=== PATIENT | female | born 1940 | race African-American/Black ===

== ENCOUNTER 2016-10-13 11:46 | Inpatient (IN) | payer MEDICARE, OTHER ==
[~2016-10-13] VITALS: Ht 165.1 cm; Wt 98.9 kg
[2016-10-13 15:18] VITALS: BP 118/69
--- NOTE | 2016-10-13 15:51 | Diagnostic Imaging Report ---
Indication: Cough Technique: One view of the chest Comparison: 05/11/2010 Findings: Patient is slightly rotated to the right. The lungs and pleural spaces are clear. Is a right chest pacemaker, new since prior study. Aorta is tortuous. There is no other significant interim change. Left axillary surgical clips are again demonstrated Impression: No acute process. Findings as noted
[2016-10-13 16:04] VITALS: BP 118/69
[2016-10-13] MEDS: Benztropine 1mg tab ORAL SCH (18:05)
[2016-10-13 20:00] VITALS: BP 148/89
[2016-10-13 20:20] LABS: TROPONIN I < 0.30 ng/mL (<=0.30)
[2016-10-13] MEDS ORDERED: Atorvastatin 20mg tab ORAL SCH (21:00)
[2016-10-14] VITALS: BP 150/60
--- NOTE | 2016-10-14 03:48 | Consultation ---
DATE OF CONSULTATION: 10/13/2016 CARDIOLOGY CONSULTATION: CONSULTING PHYSICIAN: Colt Bauer M.D. ATTENDING PHYSICIAN: Ronaldo Garcia M.D. REFERRING PHYSICIAN: Ronaldo Garcia M.D. REQUESTING PHYSICIAN: Ronaldo Garcia M.D. REASON FOR CONSULTATION: Syncope. HISTORY OF PRESENT ILLNESS: This is a 76-year-old female, who was seen by Dr. Garcia today at the office. She has had several days of diarrhea. She has been taking her medications as usual and does include a thiazide diuretic. She has been dizzy, lightheaded, and passed out, on at least one occasion with no associated injury. She denies chest pain, palpitations, or shortness of breath. No melena or bright red blood per rectum. She has had nausea, but no vomiting. PAST MEDICAL HISTORY: Hyperlipidemia, hypertension with hypertensive heart disease, schizoaffective disorder, hypothyroidism, degenerative disk disease, history of breast cancer with mastectomy, obesity, degenerative disk disease, permanent pacemaker, and type 2 diabetes mellitus. ALLERGIES: None. FAMILY HISTORY: Not known. SOCIAL HISTORY: Negative for smoking, alcohol, or substance abuse. MEDICATIONS: Prior to admission, reviewed and reconciled. REVIEW OF SYSTEMS: No loss of vision or hearing. No history of retinopathy. No fevers or chills. No cough or sputum production. No history of blood clots in the legs. No history of flow-limiting coronary disease. She has a history of hypertension. Her most recent echocardiogram revealed normal ejection fraction, concentric hypertrophy, and diastolic relaxation abnormality. She has no history of seizure or stroke. She is on neuroleptics. She is on thyroid replacement. Her diabetes is managed with diet. She has a permanent pacemaker and was recently interrogated with appropriate function and adequate battery life noted. She does have chronic kidney disease of mild severity. She has not noted any blood or dark material in her diarrhea. PHYSICAL EXAMINATION: VITAL SIGNS: Blood pressure is 118/69, pulse 76, respirations 18, and afebrile. HEENT: Normocephalic and atraumatic. Conjunctivae are pink. Sclerae are anicteric. Arcus senilis. Oropharynx is clear. Mucous membranes dry. NECK: Supple. Jugular venous pressure is normal. LUNGS: Clear. BREAST: Left mastectomy scar. CARDIAC: Regular rhythm and rate. Normal S1 and S2 with a fourth heart sound. ABDOMEN: Soft. EXTREMITIES: No edema. SKIN: With dry turgor. NEUROLOGIC: Symmetric strength. No asterixis and no dyskinetic movements. LABORATORY DATA: Laboratories are pending. IMPRESSION: 1. Orthostatic syncope. 2. Hypovolemia and dehydration. 3. Diarrhea. 4. Rule out colitis. 5. Permanent pacemaker. 6. Type 2 diabetes mellitus. PLAN: Discontinue diuretics. Hold parameters and antihypertensive. Hydrate with isotonic intravenous fluids. Consider CT scan of the abdomen and stool studies. Antidiarrheal agent. Reviewed electrocardiogram. Followup laboratory studies and replace electrolytes as needed. Colt Bauer M.D. DR: Wilma JOB#: [id number] CC:
[2016-10-14 04:00] VITALS: BP 140/92
[2016-10-14 07:31] LABS: BASOPHILS % (AUTO) 0.5 % (0.0-2.0); EOSINOPHILS % (AUTO) 2.6 % (0.0-3.0); LYMPHOCYTES % (AUTO) 21.9 % (20.0-45.0); MEAN CORPUSCULAR HEMOGLOBIN 28.8 PG (27.0-31.0); MEAN CORPUSCULAR HGB CONC 31.7 G/DL (32.0-36.0); MEAN CORPUSCULAR VOLUME 91 FL (80-99); MEAN PLATELET VOLUME 10.2 FL (6.5-10.1); MONOCYTES % (AUTO) 15.8 % (1.0-10.0); NEUTROPHILS % (AUTO) 59.2 % (45.0-75.0); PLATELET COUNT 189 K/UL (150-450); RED BLOOD COUNT 3.83 M/UL (4.20-5.40); RED CELL DISTRIBUTION WIDTH 13.2 % (11.6-14.8); WHITE BLOOD COUNT 5.1 K/UL (4.8-10.8)
[2016-10-14 07:49] LABS: ALANINE AMINOTRANSFERASE 8 U/L (3-33); ALBUMIN/GLOBULIN RATIO 1.1 (1.0-2.7); ANION GAP 15 (5-15); ASPARTATE AMINO TRANSFERASE 15 U/L (5-40); CALCIUM 9.1 mg/dL (8.6-10.2); CARBON DIOXIDE 25 mEQ/L (20-30); CHLORIDE 100 mEQ/L (98-107); CREATININE 2.3 mg/dL (0.5-0.9); HEMOLYSIS 2; MAGNESIUM 1.8 mg/dL (1.7-2.5); POTASSIUM 3.1 mEQ/L (3.4-4.9); SODIUM 140 mEQ/L (135-145); TOTAL PROTEIN 6.6 g/dL (6.6-8.7)
[2016-10-14 08:45] VITALS: BP 141/76
[2016-10-14] MEDS: KCl 10% 20 mEq/15ml liquid ORAL SCH ×3 (08:54→20:36)
[2016-10-14] MEDS: Benztropine 1mg tab ORAL SCH ×3 (08:55→20:37)
[2016-10-14] MEDS ORDERED: Losartan 50mg tab ORAL SCH (09:00)
[2016-10-14] MEDS ORDERED: Triamterene/Hctz 37.5/25 cap ORAL SCH (09:00)
[2016-10-14] MEDS ORDERED: Heparin 5000 units/ml inj SUBQ SCH (09:00)
[2016-10-14] MEDS ORDERED: BuPROPion XL 150mg tab ORAL SCH (09:00)
[2016-10-14] MEDS ORDERED: Calcitriol 0.25mcg Cap ORAL SCH (09:00)
[2016-10-14 11:58] VITALS: BP 121/59
[2016-10-14] MEDS ORDERED: Pneumococcal Vaccine 25mcg/0.5ml IM ONE (13:00)
[2016-10-14 15:39] VITALS: BP 120/81
[2016-10-14 20:00] VITALS: BP 133/69
[2016-10-14] MEDS: Heparin 5000 units/ml inj SUBQ SCH (20:40)
--- NOTE | 2016-10-14 20:48 | History and Physical Report ---
DATE OF ADMISSION: 10/13/2016 CHIEF COMPLAINT: Dizziness and near syncope. HISTORY OF PRESENT ILLNESS: The patient is a very pleasant 68-year-old female, well known to me. She has a history of hypertension, hypertensive heart disease, and schizoaffective disorder. She has a history of breast cancer status post mastectomy and history of a permanent pacemaker placement. She presented to my office on the day of admission. At that time, she was weak and dizzy. She was hypotensive. According to the patient, she had been having some diarrhea. She currently resides at an assisted living in a [facility] where she has been long-term resident. She denies any chest pain or shortness of breath. Denies any palpitations. She manages her own medications. It is unclear whether not she had been taking her antihypertensives as ordered. PAST MEDICAL HISTORY: As above. PAST SURGICAL HISTORY: As above. CURRENT MEDICATIONS: Reconciled and reviewed. ALLERGIES: None. SOCIAL HISTORY: There is no known history of tobacco, ethanol, or drugs. FAMILY HISTORY: None. REVIEW OF SYSTEMS: General: Positive malaise and weakness. HEENT: No headaches or visual changes. Cardiopulmonary: No chest pain or shortness of breath. Positive history of pacemaker. Gastrointestinal: Positive diarrhea. Genitourinary: No urgency or frequency. Muscular: No muscular pain or swelling. Neurologic: No evidence of seizures. PHYSICAL EXAMINATION: VITAL SIGNS: Blood pressure is 90/60, current blood pressure is 141/76, pulse 60, and respirations 20. GENERAL: The patient is a well-developed female, in no apparent distress. She is awake, alert, and oriented x4. HEENT: Her pupils are equal, round, and reactive to light. Oropharynx clear. NECK: Supple. HEART: Regular rate and rhythm. LUNGS: Clear. ABDOMEN: Soft, nontender, and nondistended. EXTREMITIES: Without clubbing, cyanosis, or edema. LABORATORY AND DIAGNOSTIC DATA: Labs show sodium 140, potassium 3.1, and creatinine 2.3. White count 5, hemoglobin 11, and hematocrit 34. EKG shows a paced rhythm. TSH was 0.059. Natriuretic peptide was 661. ASSESSMENT: This is a pleasant female with complaints of near syncope suspect secondary to dehydration. Problems, 1. Dehydration. 2. Acute renal failure. 3. History of conduction system disease and pacemaker. 4. History of schizoaffective disorder. 5. History of breast cancer. PLAN: IV hydration. Monitor renal function. Cardiology consultation. Consider checking patient's pacemaker. Monitor Accu-Cheks. PT/OT evaluation . Ronaldo Garcia M.D. DR: Larissa JOB#: [id number] CC:
[2016-10-14] MEDS ORDERED: Atorvastatin 20mg tab ORAL SCH (21:00)
--- NOTE | 2016-10-14 23:37 | Progress Note ---
DATE: 10/14/2016 CARDIOLOGY PROGRESS NOTE SUBJECTIVE: The patient is without chest pain, shortness of breath, nausea, or vomiting. Diarrhea has decreased. She is tolerating her diet but still has a poor appetite. OBJECTIVE: VITAL SIGNS: Blood pressure 141/76, heart rate 60, and respiratory rate. Afebrile. NECK: Supple. LUNGS: Clear. CARDIAC: Regular. Normal S1 and S2 with a fourth heart sound. ABDOMEN: Soft. No focal tenderness. EXTREMITIES: No edema. LABORATORY DATA: White count 5.1 and hemoglobin 11. Potassium is 3.1. Magnesium is 1.8. Pro-natriuretic peptide is 661. IMPRESSION: 1. Diarrhea. 2. Dehydration. 3. Hypovolemia. 4. Acute renal failure due to acute tubular necrosis. 5. Hypokalemia. 6. Chronic diastolic congestive heart failure. PLAN: 1. Continue hydration by IV route. 2. Cautious use of losartan. 3. Monitor cardiorenal parameters. 4. Replace potassium. 5. Recheck magnesium. 6. DVT prophylaxis. Colt Bauer M.D. DR: JIAN JOB#: [id number] CC:
[2016-10-15] VITALS: BP 128/73
[2016-10-15 04:00] VITALS: BP 138/77
--- NOTE | 2016-10-15 07:44 | General Progress Note ---
Assessment/Plan Problem List: (1) Acute renal failure ICD Codes: N17.9 - Acute kidney failure, unspecified SNOMED: 61137191 (2) Encephalopathy acute ICD Codes: G93.40 - Encephalopathy, unspecified SNOMED: 6434748 (3) Syncope ICD Codes: R55 - Syncope and collapse SNOMED: 293100667 (4) Dehydration ICD Codes: E86.0 - Dehydration SNOMED: 65187772 Status: stable, progressing Assessment/Plan ivf await labs pt/ot can dc if renal fxn better and cleared by pt/ot Subjective ROS Limited/Unobtainable: Yes Constitutional: Reports: malaise, weakness HEENT: Reports: no symptoms Cardiovascular: Reports: no symptoms Respiratory: Reports: no symptoms Gastrointestinal/Abdominal: Reports: no symptoms Genitourinary: Reports: no symptoms Neurologic/Psychiatric: Reports: no symptoms Endocrine: Reports: no symptoms Hematologic/Lymphatic: Reports: no symptoms Allergies: Coded Allergies: No Known Allergies (Unverified , 10/13/16) All Systems: reviewed and negative except above Subjective no diarrhea. feels better. no dizziness. labs pending Objective Last 24 Hour Vital Signs Date Time Temp Pulse Resp B/P Pulse Ox O2 Delivery O2 Flow Rate FiO2 10/15/16 04:00 98.2 73 20 138/77 96 Room Air 10/15/16 00:00 97.0 68 18 128/73 Room Air 10/14/16 20:00 96.2 62 20 133/69 94 Room Air 10/14/16 15:39 96.3 65 20 120/81 97 Room Air 10/14/16 12:00 63 10/14/16 11:58 97.0 63 20 121/59 98 Room Air 10/14/16 08:55 60 141/76 10/14/16 08:55 141/76 10/14/16 08:45 97.5 60 20 141/76 95 Room Air 10/14/16 08:00 60 Intake and Output 10/14/16 10/15/16 19:00 07:00 Intake Total 360 ml 1190 ml Balance 360 ml 1190 ml Intake Oral 360 ml 540 ml IV Total 650 ml # Voids 3 5 Laboratory Tests 10/15/16 06:30: Sodium Level [Pending], Potassium Level [Pending], Chloride Level [Pending], Carbon Dioxide Level [Pending], Blood Urea Nitrogen [Pending], Creatinine [ Pending], Estimat Glomerular Filtration Rate [Pending], Glucose Level [Pending] , Calcium Level [Pending], Magnesium Level [Pending], Total Bilirubin [Pending] , Aspartate Amino Transf (AST/SGOT) [Pending], Alanine Aminotransferase (ALT/ SGPT) [Pending], Alkaline Phosphatase [Pending], Total Protein [Pending], Albumin [Pending], Globulin [Pending] Height (Feet): 5 Height (Inches): 5.00 Weight (Pounds): 218 General Appearance: WD/WN, alert Neck: supple Cardiovascular: regular rhythm Respiratory/Chest: lungs clear Abdomen: normal bowel sounds, non tender, soft, no organomegaly Edema: no edema noted Arm (L), no edema noted Arm (R), no edema noted Leg (L), no edema noted Leg (R), no edema noted Pedal (L), no edema noted Pedal (R), no edema noted Generalized Neurologic: medical office receptionist II-XII grossly normal, alert, oriented x 3, responsive DANICA MOTA Oct 15, 2016 07:44
[2016-10-15 07:53] LABS: ALANINE AMINOTRANSFERASE 10 U/L (3-33); ALBUMIN/GLOBULIN RATIO 1.1 (1.0-2.7); ANION GAP 15 (5-15); ASPARTATE AMINO TRANSFERASE 17 U/L (5-40); CALCIUM 9.1 mg/dL (8.6-10.2); CARBON DIOXIDE 26 mEQ/L (20-30); CHLORIDE 100 mEQ/L (98-107); CREATININE 1.6 mg/dL (0.5-0.9); HEMOLYSIS 5; POTASSIUM 3.2 mEQ/L (3.4-4.9); SODIUM 141 mEQ/L (135-145); TOTAL PROTEIN 6.5 g/dL (6.6-8.7)
[2016-10-15] MEDS ORDERED: NORVASC5 MG ORAL (08:36)
[2016-10-15] MEDS ORDERED: WELLBUTRIN XL150 M3 ORAL (08:36)
[2016-10-15] MEDS ORDERED: ROCATROL0.25 MCG ORAL (08:36)
[2016-10-15] MEDS ORDERED: LIPITOR20 MG ORAL (08:36)
[2016-10-15] MEDS ORDERED: FLUPHENAZINE HCL5 MG ORAL (08:36)
[2016-10-15] MEDS ORDERED: BENZTROPINE MESY1 MG ORAL (08:36)
[2016-10-15] MEDS ORDERED: LEVOTHYROXINE100 MCG ORAL (08:36)
[2016-10-15] MEDS ORDERED: COZAAR50 MG ORAL (08:36)
[2016-10-15] MEDS ORDERED: Losartan 50mg tab ORAL SCH ×2 (09:00)
[2016-10-15] MEDS ORDERED: Calcitriol 0.25mcg Cap ORAL SCH (09:00)
[2016-10-15] MEDS ORDERED: BuPROPion XL 150mg tab ORAL SCH (09:00)
[2016-10-15] MEDS: KCl 10% 20 mEq/15ml liquid ORAL SCH (09:53)
[2016-10-15] MEDS: Heparin 5000 units/ml inj SUBQ SCH (09:56)
[2016-10-15] MEDS: Benztropine 1mg tab ORAL SCH (09:57)
[2016-10-15 11:36] VITALS: BP 121/71
[2016-10-15 11:45] LABS: APPEARANCE,URINE CLEAR; KETONES,URINE NEGATIVE (NEGATIVE); LEUKOCYTE ESTERASE ,URINE NEGATIVE (NEGATIVE); NITRITE,URINE NEGATIVE (NEGATIVE); PH,URINE 6.5 (4.5-8.0); PROTEIN,URINE NEGATIVE (NEGATIVE); UROBILINOGEN,URINE NORMAL MG/DL (0.0-1.0)
[2016-10-15] MEDS ORDERED: KCl 10% 40mEq/30ml liquid ORAL ONE (13:00)
[2016-10-15 15:40] VITALS: BP 119/67
--- NOTE | 2016-10-16 00:58 | Discharge Summary ---
DATE OF ADMISSION: 10/13/2016 DATE OF DISCHARGE: 10/15/2016 ADMISSION DIAGNOSES: 1. Dehydration. 2. Acute renal failure. 3. Encephalopathy. 4. Hypertension. 5. Venous insufficiency. 6. History of breast cancer. 7. History of conduction system disease status post pacemaker on . HOSPITAL COURSE: The patient is a very pleasant female admitted with complaints of near syncope. She was dehydrated with acute renal failure. She has had been having diarrhea. She is hydrated aggressively. Renal function improved. Electrolytes were replaced. Cardiology consultation was obtained. The patient was cleared by PT/OT. Renal function was close to baseline on discharge. DISCHARGE MEDICATIONS: Please see discharge medication list for discharge medications. DIET: Cardiac diet. ACTIVITY: Ad-Elke. FOLLOWUP: The patient will follow up in the office in one to two weeks. Ronaldo Garcia M.D. DR: Larissa JOB#: [id number] CC:
--- NOTE | 2016-10-16 00:58 | Progress Note ---
DATE: 10/15/2016 SUBJECTIVE: The patient feels better. Diarrhea has resolved. OBJECTIVE: VITAL SIGNS: Blood pressure 138/77, pulse 73, and respiration 20. NECK: Supple. LUNGS: Clear. CARDIAC: Regular. Normal S1 and S2. ABDOMEN: Soft. No edema. Urinalysis is negative. Magnesium 1.5. Potassium 3.2. BUN 30. Creatinine 1.6. IMPRESSION: 1. Diarrhea, resolved. 2. Dehydration and hypovolemia corrected. 3. Hypomagnesemia and hypokalemia, persisting. 4. Acute on chronic renal failure, resolved with hydration. 5. Hypertensive heart disease with controlled blood pressure. PLAN: 1. Intravenous magnesium. 2. Oral potassium. Other cardiovascular regimen without change. Stable for outpatient followup from cardiovascular standpoint once magnesium and potassium have been administered. Colt Bauer M.D. DR: JOAN JOB#: [id number] CC:
== END 2016-10-15 16:13 | disposition home health service (06) | DRG 682 ==
LOC: 2E 13:30 → 4E 10-14 18:00
DX: N17.0 Acute kidney failure with tubular necrosis (principal); G93.40 Encephalopathy, unspecified; E86.0 Dehydration; I50.32 Chronic diastolic (congestive) heart failure; I13.0 Hypertensive heart and chronic kidney disease with heart failure and stage 1 through stage 4 chronic kidney disease, or unspecified chronic kidney disease; E11.9 Type 2 diabetes mellitus without complications; Z95.0 Presence of cardiac pacemaker; F25.9 Schizoaffective disorder, unspecified; Z85.3 Personal history of malignant neoplasm of breast; I87.2 Venous insufficiency (chronic) (peripheral); E78.5 Hyperlipidemia, unspecified; I95.1 Orthostatic hypotension; R19.7 Diarrhea, unspecified; E87.6 Hypokalemia; E83.42 Hypomagnesemia; N18.9 Chronic kidney disease, unspecified; Z23 Encounter for immunization
CPT/HCPCS: 36415; 71010; 80053; 81003; 83735; 83880; 84443; 84484; 85025; 90732

== ENCOUNTER → 2017-01-27 | Outpatient (CLI) | payer MEDICARE, OTHER ==
[~2017-01-27] MED LIST: BENZTROPINE MESY1 MG ORAL; COZAAR50 MG ORAL; FLUPHENAZINE HCL5 MG ORAL; LEVOTHYROXINE100 MCG ORAL; LIPITOR20 MG ORAL; NORVASC5 MG ORAL; ROCATROL0.25 MCG ORAL; WELLBUTRIN XL150 M3 ORAL
--- NOTE | 2017-01-27 15:47 | Diagnostic Imaging Report ---
Indication: Pain Findings: 3 views of the right wrist were obtained. Plaster cast noted. There are no reference films. There is evidence of an intra-articular moderately impacted fracture of the distal radius without significant displacement. The fracture does not appear completely healed but there does appear to be evidence of healing with blurring of the fracture lines and callus formation noted. There are DJD at the base of the first metacarpal and radioscaphoid joints noted, characterized by osteophyte formation and narrowing of the joint space. Impression: Impacted, intra-articular fracture of the distal radius. Evidence of healing. 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 Findings discussed with Dr. Ronaldo Garcia via telephone
== END | disposition home or self-care (01) ==
LOC: RAD 10:57
DX: M25.531 Pain in right wrist (principal); M19.031 Primary osteoarthritis, right wrist; M18.9 Osteoarthritis of first carpometacarpal joint, unspecified; Z91.81 History of falling; S52.501G Unspecified fracture of the lower end of right radius, subsequent encounter for closed fracture with delayed healing; X58.XXXD Exposure to other specified factors, subsequent encounter